=== PATIENT | female | born 1950 | race Caucasian/White ===

== ENCOUNTER → 2019-09-18 16:35 | Outpatient (CLI) | payer MEDICARE, OTHER, SELFPAY ==
[2019-09-18 19:29] LABS: Clostridium Difficile Tox PCR Negative for C. diff
== END ==
PROVIDERS: PCP Nurse Practitioner; Referring Provider Nurse Practitioner; Visit Provider Nurse Practitioner
DX: Q43.8 Other specified congenital malformations of intestine (principal); R19.4 Change in bowel habit; R19.7 Diarrhea, unspecified; Z98.84 Bariatric surgery status
CPT/HCPCS: 87177; 87493

== ENCOUNTER → 2019-09-19 08:21 | Outpatient (CLI) | payer MEDICARE, OTHER, SELFPAY ==
[2019-09-21 19:43] LABS: COVID19 Sendout Not Detected (Not Detected)
== END ==
PROVIDERS: PCP Nurse Practitioner; Visit Provider Physician Assistant
DX: Z01.818 Encounter for other preprocedural examination (principal); R05 Cough
CPT/HCPCS: 87635

== ENCOUNTER → 2019-09-19 08:37 | Outpatient (CLI) | payer MEDICARE, OTHER, SELFPAY ==
--- NOTE | 2019-09-19 08:42 | DI.RAD.S_ITS ---
PROCEDURE: XR ACUTE ABDOMEN SERIES INDICATIONS: abdominal pain, diarrhea, nausea, vomiting. TECHNIQUE: One view chest and two views of the abdomen were acquired. COMPARISON: None. FINDINGS: Surgical changes and devices: None. Chest: Lungs are clear. Heart size is normal. No pleural effusions. No pneumoperitoneum. Abdomen: There is gaseous dilatation of multiple loops of colon. Loops of colon are dilated up to 9.5 cm. Loops of colon are dilated to the lower pelvis. No suspicious calcifications. Visualized solid organ contours appear normal. Bones: No suspicious bony lesions. IMPRESSION: Findings suspicious for distal colonic obstruction. Dictated by: Lizbeth Townsend MD, PhD on 09/19/2019 at 9:40 Approved by: Lizbeth Townsend MD, PhD on 09/19/2019 at 9:41
--- NOTE | 2019-09-19 08:42 | DI.RAD.S_ITS ---
PROCEDURE: XR CHEST 2V INDICATIONS: shortness of breath, bilateral lower lobe crackes TECHNIQUE: 2 views of the chest were acquired. COMPARISON: None. FINDINGS: Surgical changes and devices: None. Lungs and pleura: Lungs are clear. No pleural effusions or pneumothorax. Mediastinum: Mediastinal contours are normal. Heart size is normal. Bones and chest wall: No suspicious bony abnormalities. Soft tissues appear unremarkable. IMPRESSION: No acute cardiopulmonary disease process. Dictated by: Lizbeth Townsend MD, PhD on 09/19/2019 at 9:40 Approved by: Lizbeth Townsend MD, PhD on 09/19/2019 at 9:40
[2019-09-19 10:17] LABS: Add Manual Diff / Slide Review NO; Basophils Absolute Auto 0 /uL (0-100); Basophils Percent Auto 0.4 % (0-2); Eosinophils Absolute Auto 0 /uL (0-450); Eosinophils Percent Auto 0.4 % (2-4); Hematocrit 28.2 % (36-46); Hemoglobin 9.3 g/dL (12.0-16.0); Lymphocytes Absolute Auto 1700 /uL (1100-4500); Mean Corpuscular HGB Conc 32.9 % (30-36); Mean Corpuscular Hemoglobin 25.6 PG (26-34); Mean Corpuscular Volume 77.9 fL (80-100); Monocytes Absolute Auto 400 /uL (0-900); Neutrophils Absolute Auto 5700 /uL (1500-7000); Neutrophils Percent Auto 72.2 % (50-75); Platelet Count 280 X10^3/uL (150-400); Red Blood Cell Count 3.61 X10^6/uL (4.0-5.2); Red Cell Distribution Width 15.6 % (11.6-14.8); White Blood Cell Count 7.9 X10^3/uL (4.5-11.0)
[2019-09-19 11:03] LABS: HEMOLYSIS < 15 (0-50); Iron 30 ug/dL (37-170)
[2019-09-19 11:09] LABS: Alanine Aminotransferase 13 IU/L (<35); Albumin 3.1 g/dL (3.5-5.0); Albumin Globulin Ratio 1.2 (1.0-2.8); Alkaline Phosphatase 90 U/L (38-126); Aspartate Aminotransferase 24 IU/L (14-36); BUN Creatinine Ratio 17.8 (6-22); Bilirubin Total 0.5 mg/dL (0.2-1.3); Blood Urea Nitrogen 13 mg/dL (7-17); Calcium 8.6 mg/dL (8.4-10.2); Carbon Dioxide 24 mmol/L (22-32); Chloride 106 mmol/L (98-107); Cholesterol 127 mg/dL (140-199); Estimated Glomerular Filt Rate > 60.0 mL/min (>60); Globulin 2.6 g/dL (1.7-4.1); Glucose 89 mg/dL (80-110); HDL Cholesterol 53 mg/dL (40-60); HEMOLYSIS < 15 (0-50); LDL Cholesterol Calculated 59 mg/dL (<100); Potassium 2.9 mmol/L (3.4-5.1); Sodium 139 mmol/L (137-145); Total Protein 5.7 g/dL (6.3-8.2); Triglycerides 76 mg/dL (35-150)
[2019-09-19 11:13] LABS: Vitamin D 25 Hydroxy (D3) 23.7 ng/mL (30.0-100.0)
[2019-09-19 11:16] LABS: Percent Iron Saturation 8 % (15-50); Total Iron Binding Capacity 396 ug/dL (265-497); Transferrin 293 mg/dL (206-381)
[2019-09-19 12:09] LABS: Folate 16.7 ng/mL (2.76-20.0); Vitamin B12 967 pg/mL (239-931)
[2019-09-22 16:08] LABS: Zinc 72 ug/dL (56-134)
== END ==
PROVIDERS: PCP Nurse Practitioner; Referring Provider Nurse Practitioner; Visit Provider Nurse Practitioner
DX: Z01.818 Encounter for other preprocedural examination (principal); R05 Cough; R06.02 Shortness of breath; R09.89 Other specified symptoms and signs involving the circulatory and respiratory systems; K59.39 Other megacolon; Z13.220 Encounter for screening for lipoid disorders; Z13.6 Encounter for screening for cardiovascular disorders; E56.9 Vitamin deficiency, unspecified; E61.8 Deficiency of other specified nutrient elements; R19.7 Diarrhea, unspecified; Q43.8 Other specified congenital malformations of intestine; Z98.84 Bariatric surgery status; E55.9 Vitamin D deficiency, unspecified
CPT/HCPCS: 71046; 74022; 80053; 80061; 82306; 82525; 82607; 82746; 83540; 83550; 84630; 85025; 87635

== ENCOUNTER → 2019-10-13 11:42 | Outpatient (CLI) | payer MEDICARE, OTHER, SELFPAY ==
--- NOTE | 2019-10-13 11:43 | DI.CT.S_ITS ---
PROCEDURE: CT ABDOMEN PELVIS W CON INDICATIONS: anemia, diarrha TECHNIQUE: After the administration of oral and intravenous contrast, 5 mm thick sections acquired from the diaphragms to the symphysis. 5 mm thick coronal and sagittal reformats were performed. For radiation dose reduction, the following was used: automated exposure control, adjustment of mA and/or kV according to patient size. COMPARISON: [facility], CR, XR ACUTE ABDOMEN SERIES, 09/19/2019, 8:34. [facility], CR, XR CHEST 2V, 09/19/2019, 8:34. FINDINGS: Image quality: Excellent. ABDOMEN: Lung bases: Lung bases are clear. Heart size is normal. Solid organs: Liver is normal in size and enhancement. Gallbladder is partially contracted . Biliary system is non-dilated. Pancreas enhances normally. Spleen is normal in size and enhancement. No adrenal nodules. Kidneys are normal in size and enhancement, without hydronephrosis. Peritoneum and bowel: Stomach is normal in caliber and wall thickness, but a portion of the mid abdomen small bowel centered on series 2, image 43 and also seen on sagittal reconstruction series 5, image 45 appears abnormally wall thickened with a possible associated slight intussusception involving the small bowel at the midline above the iliac crest level. There also is a region of mural thickening involving the colon at the lower midline, involving the sigmoid colon near its [id number] thirds seen on axial image 71 of series 2. Gas prominence within descending colon and proximal sigmoid colon is associated with this appearance which raises concern for potential neoplasm at that site. No free fluid or air. Nodes and vessels: No retroperitoneal or mesenteric adenopathy. Aorta and inferior vena cava are normal in caliber. Miscellaneous: No ventral hernias. PELVIS: Genitourinary: Bladder wall thickness is normal. Miscellaneous: No inguinal hernias or adenopathy. Bones: No suspicious bony lesions. No vertebral body compression fractures. IMPRESSION: Within the lower anterior midline of the abdomen there is a region of small bowel mural thickening with possible short-segment intussusception identified, potentially representing an area of neoplastic involvement by small bowel in this clinical circumstance. There also is gas prominence within the: Through the descending colon and into the proximal sigmoid colon with an area of colonic mural thickening potentially a manifestation of neoplasm with gas retention above the area of narrowing Small-bowel follow-through barium examination and consideration of colonoscopy may be warranted. Dictated by: Elie Chen M.D. on 10/13/2019 at 13:49 Approved by: Elie Cehn M.D. on 10/13/2019 at 14:00
== END ==
PROVIDERS: PCP Nurse Practitioner; Referring Provider Internal Medicine Hematology & Oncology; Visit Provider Internal Medicine Hematology & Oncology
DX: D64.9 Anemia, unspecified (principal); R19.7 Diarrhea, unspecified
CPT/HCPCS: 74177

== ENCOUNTER → 2019-11-04 07:33 | Outpatient (CLI) | payer MEDICARE, OTHER, SELFPAY ==
--- NOTE | 2019-11-04 07:34 | DI.RAD.S_ITS ---
PROCEDURE: FL SMALL BOWEL FOLLOW THROUGH INDICATIONS: POTENTIAL LESION IN COLON, INTUSSUSCEPTION OF INTESTINE COMPARISON: [facility], CT, CT ABDOMEN PELVIS W CON, 10/13/2019, 12:51. FINDINGS: KUB: Preprocedural card reader film demonstrates a normal bowel gas pattern. No suspicious abdominal calcifications. Visualized solid organ contours appear normal. No suspicious bony abnormalities. Small bowel: There is normal transit time of barium through the small bowel. Small bowel loops are of normal caliber throughout. Mucosal folds are smooth and of normal thickness. No strictures, intraluminal masses, or extrinsic mass effects are noted. The terminal ileum is identified, and is normal in morphology. There is large amount of stool and a dilated appearance of the:, presumably related to distal colonic obstruction, similar appearance to the CT dated 10/13/19. IMPRESSION: Normal small bowel transit time. Large amount of diffuse stool throughout the colon, which is dilated as before. Similar appearance to the recent CT dated 10/13/19. Dictated by: Cal Mullins M.D. on 11/04/2019 at 9:56 Approved by: Cal Mullins M.D. on 11/04/2019 at 10:04
== END ==
PROVIDERS: PCP Nurse Practitioner; Referring Provider Nurse Practitioner; Visit Provider Nurse Practitioner
DX: K56.1 Intussusception (principal)
CPT/HCPCS: 74250

== ENCOUNTER → 2022-11-06 11:17 | Outpatient (CLI) | payer MEDICARE, OTHER, SELFPAY ==
[2022-11-06 11:50] LABS: Add Manual Diff / Slide Review NO; Basophils Absolute Auto 0 /uL (0-100); Basophils Percent Auto 0.6 % (0-2); Eosinophils Absolute Auto 100 /uL (0-450); Eosinophils Percent Auto 1.8 % (2-4); Hematocrit 36.9 % (36-46); Hemoglobin 12.3 g/dL (12.0-16.0); Lymphocytes Absolute Auto 800 /uL (1100-4500); Lymphocytes Percent Auto 15.2 % (25-40); Mean Corpuscular HGB Conc 33.4 % (30-36); Mean Corpuscular Hemoglobin 29.9 PG (26-34); Mean Corpuscular Volume 89.3 fL (80-100); Monocytes Absolute Auto 400 /uL (0-900); Monocytes Percent Auto 7.9 % (3-14); Neutrophils Absolute Auto 3700 /uL (1500-7000); Neutrophils Percent Auto 74.5 % (50-75); Platelet Count 274 X10^3/uL (150-400); Red Blood Cell Count 4.14 X10^6/uL (4.0-5.2); Red Cell Distribution Width 13.6 % (11.6-14.8)
[2022-11-06 12:11] LABS: HEMOLYSIS < 15 (0-50); Iron 56 ug/dL (37-170)
[2022-11-06 12:18] LABS: Alanine Aminotransferase 25 IU/L (<35); Albumin 4.1 g/dL (3.5-5.0); Albumin Globulin Ratio 1.2 (1.0-2.8); Alkaline Phosphatase 102 U/L (38-126); Aspartate Aminotransferase 35 IU/L (14-36); BUN Creatinine Ratio 25.6 (6-22); Bilirubin Total 0.3 mg/dL (0.2-1.3); Blood Urea Nitrogen 22 mg/dL (7-17); Calcium 8.9 mg/dL (8.4-10.2); Carbon Dioxide 28 mmol/L (22-32); Chloride 106 mmol/L (98-107); Estimated Glomerular Filt Rate > 60 mL/min (>60); Globulin 3.4 g/dL (1.7-4.1); Glucose 101 mg/dL (80-110); HEMOLYSIS < 15 (0-50); Potassium 4.5 mmol/L (3.4-5.1); Sodium 141 mmol/L (137-145); Total Protein 7.5 g/dL (6.3-8.2)
[2022-11-06 12:24] LABS: Percent Iron Saturation 12 % (15-50); Total Iron Binding Capacity 473 ug/dL (265-497); Transferrin 373 mg/dL (206-381)
[2022-11-06 12:31] LABS: Free T3, Triiodothyronine Free 4.08 pg/mL (2.77-5.27); Free T4, Direct Thyroxine 1.08 ng/dL (0.78-2.19)
[2022-11-06 12:44] LABS: Thyroid Stimulating Hormone 0.915 uIU/mL (0.47-4.68)
[2022-11-06 13:06] LABS: Vitamin B12 > 1000 pg/mL (239-931)
== END ==
PROVIDERS: PCP Nurse Practitioner; Referring Provider Nurse Practitioner; Visit Provider Nurse Practitioner
DX: T73.3XXA Exhaustion due to excessive exertion, initial encounter (principal); R06.09 Other forms of dyspnea; D64.9 Anemia, unspecified
CPT/HCPCS: 36415; 80053; 82607; 83540; 83550; 84439; 84443; 84481; 85025; 93005; 93010

== ENCOUNTER → 2022-11-14 11:22 | Outpatient (CLI) | payer MEDICARE, OTHER, SELFPAY ==
--- NOTE | 2022-11-14 11:24 | DI.ECHO.S_ITS ---
[place] [facility]---------+ [facility] +---------+ : : [address] : : : : [id number] : : : : Phone: [phone]+ Echocardiogram Report + + :Name: LEANDER ZAMORA Study Date: 11/14/2022 Height: 78 in : :[facility] ReadingLocation: Weight: 170 lb : : Gender: Female BSA: 2.1 m2 : :: 1950 Age: 72 yrs BP: 127/76 mmHg: :Reason For Study: DYSPNEA ON EXERTION : :Ordering Physician: PENNY, : :AMY Performed By: Aleshia Stephens : :Referring: AMY FRANCIS : + + Interpretation Summary The left ventricle is normal in size and wall thickness. The ejection fraction is estimated to be 60-65%. Diastolic parameters suggest probable normal left ventricular diastolic function and normal filling pressures. The right ventricle is normal in size and function. Pulmonary artery pressures cannot be estimated because of the lack of a measurable TR jet velocity. The left atrial size is normal. Right atrial size is normal. There is no significant valvular heart disease. The ascending aorta is mild-moderately enlarged. Procedure: A two-dimensional transthoracic echocardiogram with color flow and Doppler was performed. The study quality was technically adequate. There is no prior echocardiogram noted for this patient. The patient was in sinus bradycardia with heart rates between 43-50 bpm during the exam. Left Ventricle: The left ventricle is normal in size and wall thickness. The ejection fraction is estimated to be 60-65%. There are no focal wall motion abnormalities. Diastolic parameters suggest probable normal left ventricular diastolic function and normal filling pressures. Right Ventricle: The right ventricle is normal in size and function. Atria: The left atrial size is normal. Right atrial size is normal. There is no Doppler evidence for an interatrial shunt. Mitral Valve: The mitral valve is normal in structure and function. There is no mitral regurgitation noted. Aortic Valve: The aortic valve is trileaflet. The aortic valve opens well. There is no aortic valve stenosis. There is mild aortic regurgitation. Tricuspid Valve: The tricuspid valve is normal in structure and function. There is trace tricuspid regurgitation. Pulmonary artery pressures cannot be estimated because of the lack of a measurable TR jet velocity. Pulmonic Valve: The pulmonic valve leaflets are thin and pliable; valve motion is normal. There is no pulmonic valvular regurgitation. There is no significant valvular heart disease. Great Vessels: The aortic root is normal size. The ascending aorta is mild- moderately enlarged. The IVC is of normal diameter and collapses greater than 50% with a sniff. This suggests a low right atrial pressure of 3 mm Hg. Pericardium/ Pleura There is no pericardial effusion. There is no pleural effusion. MMode/2D Measurements & Calculations LVIDd: 4.9 cm LVOT diam: 2.0 cm LVIDs: 3.3 cm Ao root diam: 3.3 cm FS: 32.7 % asc Aorta Diam: 4.1 cm IVSd: 0.80 cm Ao Arch Diam (Prox Trans): 2.5 cm LVPWd: 0.90 cm LV macario. diameter/BSA (cm/m^2): 2.3 LV sys. diameter/BSA (cm/m^2): 1.6 LA A2 area: 17.5 cm2 RA long axis: 4.5 cm LA A4 area: 14.8 cm2 RA area: 11.8 cm2 LA length (vol): 5.3 cm RA vol: 26.3 ml LA vol: 41.6 ml RA : 12.5 ml/m2 LA vol index: 19.7 ml/m2 IVC diam: 1.4 cm RVD1 (basal): 3.8 cm RVD2 (mid): 2.6 cm Doppler Measurements & Calculations Ao V2 max: 164.0 cm/sec LVOT Max [place]: 113.0 cm/sec Ao V2 mean: 108.0 cm/sec LV V1 max P.1 mmHg Ao max P.0 mmHg LV V1 VTI: 26.7 cm Ao mean P.0 mmHg ESTEVAN(I,D): 2.5 cm2 Ao V2 VTI: 34.1 cm ESTEVAN(V,D): 2.2 cm2 sev ratio: 0.78 ESTEVAN indexed to BSA (cm^2/m^2): 1.2 AI P1/2t: 1210 msec AI dec slope: 89.1 cm/sec2 MV E max chino: 49.7 cm/sec PA V2 max: 94.8 cm/sec MV A max chino: 46.3 cm/sec PA V2 mean: 64.2 cm/sec MV E/A: 1.1 PA mean P.0 mmHg Med Peak E' [place]: 8.3 cm/sec PA pr(Accel): 45.7 mmHg E/E' med: 6.0 Lat Peak E' [place]: 10.9 cm/sec E/E' lat: 4.6 E/e' average: 5.3 MV dec time: 0.50 sec SV(LVOT): 83.9 ml AV P1/2t-pr_phl: 1208 msec AV VR_phl: 0.69 ESTEVAN(VTI)/BSA_phl: 1.2 MV P1/2t-pr_phl: 145.0 msec Reading Physician:03:52 PM
--- NOTE | 2022-11-14 11:24 | DI.CT.S_ITS ---
PROCEDURE: CT ANGIO CHEST INDICATIONS: SOB with exertion, hx smoking TECHNIQUE: After the administration of intravenous contrast, 2 mm thick sections acquired from the pulmonary apices to the posterior costophrenic angles. 3-dimensional maximum intensity projection (MIP) coronal and sagittal reformats were then acquired through the thorax. For radiation dose reduction, the following was used: automated exposure control, adjustment of mA and/or kV according to patient size. COMPARISON: None. FINDINGS: Image quality: Excellent. Pulmonary arteries: Pulmonary arteries are normal in size, and demonstrate no intraluminal filling defects to suggest central pulmonary embolism. Lungs and pleura: Lungs are clear. No pleural effusions or pneumothorax. Central and peripheral airways are patent. Mediastinum: Heart size is mildly enlarged, without pericardial effusion. No mediastinal or hilar adenopathy. Aneurysmal dilatation of the ascending aorta, measuring 4.4 cm in diameter. Transverse arch and descending thoracic aorta are normal caliber. Esophagus is normal in caliber, with [id number] hiatal hernia. Bones and chest wall: No suspicious bony lesions. Ribs and thoracic spine appear intact throughout. Thyroid gland contains subcentimeter nodules bilaterally.. No axillary or supraclavicular adenopathy. Abdomen: Visualized upper abdominal solid organs appear normal in the early arterial phase of enhancement. Remote partial gastrectomy. IMPRESSION: 1. Aneurysmal dilatation of the ascending aorta, measuring 4.4 cm. 2. Mild cardiomegaly. 3. No pulmonary emboli. 4. No acute pulmonary process. Dictated by: Doug Amezcua M.D. on 11/14/2022 at 15:32 Approved by: Doug Amezcua M.D. on 11/14/2022 at 15:35
== END ==
PROVIDERS: PCP Nurse Practitioner; Referring Provider Nurse Practitioner; Visit Provider Nurse Practitioner
DX: R06.02 Shortness of breath (principal); R06.09 Other forms of dyspnea; I77.89 Other specified disorders of arteries and arterioles; I35.1 Nonrheumatic aortic (valve) insufficiency
CPT/HCPCS: 71275; 93306; Q9967

== ENCOUNTER → 2022-11-21 14:45 | Outpatient (CLI) | payer MEDICARE, OTHER, SELFPAY ==
--- NOTE | 2022-11-21 14:46 | DI.NM.S_ITS ---
PROCEDURE: NM EXERCISE TREADMILL NON NUC COMPARISON: None. INDICATIONS: YUN FINDINGS: the patient exercised for 6 minutes and 48 seconds reaching 101% of maximum predicated heart rate (7.0METS, MEENU -24%). Chest pain occurred with exercised and resolved within 4 minutes of rest. Very mild horizontal ST depressions in the anterolateral leads. Frequent PVCs during exercise. IMPRESSION: Abnormal non-nuclear stress test with very mild horizontal ST depressions and chest pain with exercise. Frequent PVCs during exercise. Good exercise tolerance (7.0METs, MEENU -24%). Recommend treadmill nuclear stress test for further evaluation. Dictated by: Severino Silver MD on 11/21/2022 at 17:10 Approved by: Severino Silver MD on 11/21/2022 at 17:14
== END ==
PROVIDERS: PCP Nurse Practitioner; Referring Provider Nurse Practitioner; Visit Provider Nurse Practitioner
DX: R94.39 Abnormal result of other cardiovascular function study (principal); R06.09 Other forms of dyspnea
CPT/HCPCS: 93017

== ENCOUNTER → 2023-01-01 08:44 | Outpatient (CLI) | payer MEDICARE, OTHER, SELFPAY ==
--- NOTE | 2023-01-01 17:41 | DI.NM.S_ITS ---
DATE OF SERVICE: 01/01/2023 PROCEDURE: Pharmacological perfusion study INDICATIONS: Abnormal exercise stress test. RADIOPHARMACEUTICAL: 25.6 millicurie technetium-99m Myoview IV was injected at stress and 11.9 millicurie technetium-99m Myoview IV was injected at rest. CARDIAC STRESS: Patient underwent IV Lexiscan perfusion scan under the supervision of an attending staff. The patient received IV Lexiscan as per protocol. Remained hemodynamically stable. Resting blood pressure 96/60 and peak blood pressure 140/68. Baseline rhythm was sinus. During stress, some nonspecific ST-T changes seen. No significant arrhythmias. The patient denies any chest pain. RAW DATA: There is a significant breast shadow seen. There is increased subdiaphragmatic activity as well. Gut shadow seen near the inferior border of the heart. GATED STUDY: Stress LV ejection fraction 70% without any obvious wall motion abnormalities. Resting end-diastolic volume 111 mL. TID ratio 0.93, which is within normal limits. Lung/heart ratio 0.49, which is abnormal. MYOCARDIAL PERFUSION SCAN: Stress supine, resting supine and stress prone images were compared to each other. There are multiple perfusion defects. 1. Stress supine and resting supine images revealed moderate to large size, moderate to severely decreased perfusion of anterior wall extending into the anteroapex as well as distal anterior septum, which got partially improved during stress prone images. However, stress prone images remained to have small size, mildly decreased perfusion of distal anterior wall and anteroapex. No reversible ischemia. 2. Large size, moderate to severely decreased perfusion of inferior wall seen during stress supine and resting supine images, which got completely resolved during stress prone images suggestive of diaphragmatic tissue attenuation artifact. CONCLUSION: This is an abnormal myocardial perfusion study with predominantly fixed small size distal and anterior apical anterior wall defect. Previous myocardial infarction cannot be ruled out. There is an element of breast tissue attenuation, as well as diaphragmatic tissue attenuation artifact. Left ventricular function is preserved. No significant wall motion abnormalities seen. On raw images, breast shadow, as well as increased subdiaphragmatic shadow and gut shadow near the inferior border of the heart seen. There is a possibility of hiatal hernia, as well. Correlate clinically. Lung/heart ratio mildly abnormal. Consider 2D echo to make sure there is no diastolic dysfunction or valvular pathology. Keli Lopez - PERSONAL CHEF/fn/cheryl doc#: [id number]/job#: [id number] dd: 01/01/2023 16:26:00 dt: 01/01/2023 17:12:00 DICTATING MD/COPIES TO: Fadia Barraza MD COPIES MNE: GIAN;
== END ==
PROVIDERS: PCP Nurse Practitioner; Referring Provider Family Medicine; Visit Provider Family Medicine
DX: R94.39 Abnormal result of other cardiovascular function study (principal)
CPT/HCPCS: 78452; 93017; A9502; J2785

== ENCOUNTER → 2023-02-14 09:58 | Outpatient (CLI) | payer MEDICARE, OTHER, SELFPAY ==
[2023-02-14 11:28] LABS: Add Manual Diff / Slide Review NO; Basophils Absolute Auto 0 /uL (0-100); Basophils Percent Auto 0.9 % (0-2); Eosinophils Absolute Auto 100 /uL (0-450); Eosinophils Percent Auto 1.9 % (2-4); Hematocrit 37.8 % (36-46); Hemoglobin 12.7 g/dL (12.0-16.0); Lymphocytes Absolute Auto 700 /uL (1100-4500); Lymphocytes Percent Auto 17.9 % (25-40); Mean Corpuscular HGB Conc 33.7 % (30-36); Mean Corpuscular Hemoglobin 30.5 PG (26-34); Mean Corpuscular Volume 90.5 fL (80-100); Monocytes Absolute Auto 300 /uL (0-900); Monocytes Percent Auto 8.5 % (3-14); Neutrophils Absolute Auto 2800 /uL (1500-7000); Neutrophils Percent Auto 70.8 % (50-75); Platelet Count 279 X10^3/uL (150-400); Red Blood Cell Count 4.18 X10^6/uL (4.0-5.2)
[2023-02-14 11:40] LABS: HEMOLYSIS < 15 (0-50); Iron 160 ug/dL (37-170)
[2023-02-14 11:42] LABS: Cholesterol 185 mg/dL (140-199); HDL Cholesterol 83 mg/dL (40-60); LDL Cholesterol Calculated 79 mg/dL (<100); Triglycerides 115 mg/dL (35-150)
[2023-02-14 11:44] LABS: Alanine Aminotransferase 34 IU/L (<35); Albumin 4.4 g/dL (3.5-5.0); Albumin Globulin Ratio 1.4 (1.0-2.8); Alkaline Phosphatase 122 U/L (38-126); Aspartate Aminotransferase 47 IU/L (14-36); BUN Creatinine Ratio 25.6 (6-22); Bilirubin Total 0.9 mg/dL (0.2-1.3); Blood Urea Nitrogen 21 mg/dL (7-17); Calcium 9.8 mg/dL (8.4-10.2); Carbon Dioxide 25 mmol/L (22-32); Chloride 105 mmol/L (98-107); Estimated Glomerular Filt Rate > 60 mL/min (>60); Globulin 3.2 g/dL (1.7-4.1); Glucose 90 mg/dL (80-110); HEMOLYSIS < 15 (0-50); Potassium 4.4 mmol/L (3.4-5.1); Sodium 139 mmol/L (137-145); Total Protein 7.6 g/dL (6.3-8.2)
[2023-02-14 11:53] LABS: Percent Iron Saturation 34 % (15-50); Total Iron Binding Capacity 468 ug/dL (265-497); Transferrin 397 mg/dL (206-381)
== END ==
PROVIDERS: Family Medicine; PCP Nurse Practitioner; Referring Provider Nurse Practitioner; Visit Provider Nurse Practitioner
DX: Z00.00 Encounter for general adult medical examination without abnormal findings (principal); R93.1 Abnormal findings on diagnostic imaging of heart and coronary circulation; I21.9 Acute myocardial infarction, unspecified; E78.5 Hyperlipidemia, unspecified; E61.1 Iron deficiency
CPT/HCPCS: 36415; 80053; 80061; 83540; 83550; 85025

== ENCOUNTER → 2023-11-02 08:34 | Outpatient (CLI) | payer MEDICARE, OTHER, SELFPAY ==
[2023-11-02 09:23] LABS: Alanine Aminotransferase 26 IU/L (<35); Albumin Globulin Ratio 1.5 (1.0-2.8); Alkaline Phosphatase 101 U/L (38-126); Aspartate Aminotransferase 32 IU/L (14-36); BUN Creatinine Ratio 22.5 (6-22); Bilirubin Total 0.7 mg/dL (0.2-1.3); Blood Urea Nitrogen 18 mg/dL (7-17); Calcium 8.9 mg/dL (8.4-10.2); Carbon Dioxide 22 mmol/L (22-32); Chloride 111 mmol/L (98-107); Cholesterol 124 mg/dL (140-199); Estimated Glomerular Filt Rate > 60 mL/min (>60); Globulin 2.6 g/dL (1.7-4.1); Glucose 100 mg/dL (80-110); HDL Cholesterol 73 mg/dL (40-60); HEMOLYSIS < 15 (0-50); LDL Cholesterol Calculated 32 mg/dL (<100); Potassium 4.2 mmol/L (3.4-5.1); Sodium 139 mmol/L (137-145); Total Protein 6.6 g/dL (6.3-8.2); Triglycerides 93 mg/dL (35-150)
== END ==
PROVIDERS: PCP Nurse Practitioner; Referring Provider Internal Medicine Cardiovascular Disease; Visit Provider Internal Medicine Cardiovascular Disease
DX: I25.118 Atherosclerotic heart disease of native coronary artery with other forms of angina pectoris (principal)
CPT/HCPCS: 36415; 80053; 80061

== ENCOUNTER → 2024-02-13 13:16 | Outpatient (CLI) | payer MEDICARE, OTHER, SELFPAY ==
--- NOTE | 2024-02-13 13:18 | DI.CT.S_ITS ---
PROCEDURE: CT LUNG LOW DOSE SCREENING INDICATIONS: 20 pack year smoking history TECHNIQUE: Noncontrast 2.0-2.5 mm thick sections acquired from the pulmonary apices to the posterior costophrenic angles. 7 mm thick axial MIP, and 5 mm coronal and sagittal reformats were then acquired. For radiation dose reduction, the following was used: automated exposure control, adjustment of mA and/or kV according to patient size. COMPARISON: [facility], CT, CT ANGIO CHEST, 11/14/2022, 12:28. FINDINGS: Image quality: Diagnostic. Lower Neck: No enlarged lymph nodes. Thyroid: No thyroid nodules which require sonographic follow up, per consensus guidelines. Axillae: No enlarged lymph nodes. Chest Wall: Unremarkable. Bones: Unremarkable. Lungs and Pleura: No pneumothorax or pleural effusions. No consolidations. Punctate left lower lobe nodule series 3, image 199 as well as additional lower lobe punctate nodules on series 3, image 221 are unchanged. Small cluster punctate nodules in the lateral aspect of the right upper lobe on series 3, image 142 is new. Heart: Heart size is normal. No pericardial effusion. Thoracic Vessels: Ascending thoracic aorta measures 4.3 cm unchanged. Mediastinum and Amaya: No enlarged lymph nodes. Esophagus: No wall thickening. Moderate hiatal hernia. Postsurgical gastric changes. Upper Abdomen: Visualized upper abdomen solid organs and bowel loops appear normal. IMPRESSION: Previous pulmonary nodules are unchanged. New punctate cluster of nodules in the right upper lobe suspicious for tree-in-bud appearance of infection/inflammation. LUNG-RADS 3; six-month interval follow-up after appropriate therapy for resolution right upper lobe nodules. Clinically Significant Non-pulmonary Findings: None. Dictated by: Janell Lozano M.D. on 02/13/2024 at 17:30 Approved by: Janell Lozano M.D. on 02/13/2024 at 17:49
== END ==
PROVIDERS: PCP Family Medicine; Referring Provider Family Medicine; Visit Provider Family Medicine
DX: Z87.891 Personal history of nicotine dependence (principal); Z12.2 Encounter for screening for malignant neoplasm of respiratory organs; R91.8 Other nonspecific abnormal finding of lung field; K44.9 Diaphragmatic hernia without obstruction or gangrene
CPT/HCPCS: 71271

== ENCOUNTER → 2024-10-13 08:35 | Outpatient (CLI) | payer MEDICARE, OTHER, SELFPAY ==
[2024-10-13 09:16] LABS: Add Manual Diff / Slide Review NO; Hematocrit 29.4 % (36-46); Hemoglobin 9.5 g/dL (12.0-16.0); Lymphocytes Absolute Auto 800 /uL (1100-4500); Mean Corpuscular HGB Conc 32.4 % (30-36); Mean Corpuscular Hemoglobin 24.4 PG (26-34); Mean Corpuscular Volume 75.3 fL (80-100); Platelet Count 235 X10^3/uL (150-400)
[2024-10-13 09:29] LABS: Hemoglobin A1C% w Est Avg Glu 5.1 % (4.0-6.0)
[2024-10-13 09:38] LABS: Alanine Aminotransferase 45 IU/L (<35); Albumin 3.9 g/dL (3.5-5.0); Albumin Globulin Ratio 1.4 (1.0-2.8); Alkaline Phosphatase 105 U/L (38-126); Blood Urea Nitrogen 18 mg/dL (7-17); Calcium 9.1 mg/dL (8.4-10.2); Carbon Dioxide 25 mmol/L (22-32); Chloride 106 mmol/L (98-107); Cholesterol 125 mg/dL (140-199); Estimated Glomerular Filt Rate > 60 mL/min (>60); Globulin 2.7 g/dL (1.7-4.1); Glucose 93 mg/dL (70-99); HDL Cholesterol 66 mg/dL (40-60); HEMOLYSIS < 15 (0-50); Magnesium 1.7 mg/dL (1.6-2.3); Potassium 5.2 mmol/L (3.4-5.1); Sodium 136 mmol/L (137-145); Total Protein 6.6 g/dL (6.3-8.2); Triglycerides 105 mg/dL (35-150)
[2024-10-13 09:52] LABS: Free T4, Direct Thyroxine 1.19 ng/dL (0.78-2.19)
[2024-10-13 10:05] LABS: Thyroid Stimulating Hormone 2.08 uIU/mL (0.47-4.68)
== END ==
PROVIDERS: PCP Family Medicine; Referring Provider Internal Medicine Cardiovascular Disease; Visit Provider Internal Medicine Cardiovascular Disease
DX: Z13.1 Encounter for screening for diabetes mellitus (principal); R53.83 Other fatigue; E78.5 Hyperlipidemia, unspecified; R00.1 Bradycardia, unspecified; R06.02 Shortness of breath
CPT/HCPCS: 36415; 80053; 80061; 83036; 83735; 84439; 84443; 85025

== ENCOUNTER → 2024-10-29 14:41 | Outpatient (CLI) | payer MEDICARE, OTHER, SELFPAY ==
[2024-10-29 16:51] LABS: Appearance Urine UA CLEAR; Bilirubin Urine UA NEGATIVE (NEGATIVE); Color Urine UA YELLOW; Glucose Urine UA NEGATIVE (Negative); Ketones Urine UA NEGATIVE (NEGATIVE); Leukocyte Esterase Urine UA NEGATIVE (NEGATIVE); Nitrite Urine UA POSITIVE (Negative); Occult Blood Urine UA NEGATIVE (Negative); Protein Urine UA NEGATIVE (Negative); Specific Gravity Urine UA 1.025 (1.000-1.035); Urobilinogen Urine UA 0.2 E.U./dL (0.2); pH Urine UA 5.5 (4.5-8.0)
[2024-10-29 17:01] LABS: Culture Indicated Urine Specimen Cultured
== END ==
PROVIDERS: PCP Family Medicine; Visit Provider Obstetrics & Gynecology Gynecology
DX: N95.2 Postmenopausal atrophic vaginitis (principal); N39.3 Stress incontinence (female) (male); N39.41 Urge incontinence
CPT/HCPCS: 81001; 87077; 87086

== ENCOUNTER 2024-12-15 13:48 | Day surgery (SDC) | payer MEDICARE, OTHER, SELFPAY ==
--- NOTE | 2024-12-04 16:11 | PM.GYNHP.1 ---
History of Present Illness History of Present Illness Narrative: Keli Lopez is a 74 year old female Date of procedure:?? 12-15-2024 Preoperative diagnosis:? Stress incontinence Also has overactive bladder and urge incontinence Planned Procedure:?? Mid urethral sling, cystoscopy Postop Meds Tylenol 1000 mg, ?3 times a day? Motrin 400 mg (over age 65 yr) 3 times a day Oycodone 5 mg,? take 1 pill every 4-6 hr as needed, # 5? Colace,? 1 pill BID, for constipation Both the echocardiogram and the nuclear medicine cardiac stress test were normal. Records are in the chart CC severe urinary incontinence HPI: 74-year-old female who presents for evaluation of above complaint.?? She reports onset of symptoms over 10 years ago.?? She considers this a? Moderate? problem. She has severe mixed urinary incontinence. She thinks about 80% of it is urge incontinence about 20% as stress incontinence. See triggers below. She uses 4 regular sized pads in the day and 1 pad at night. She reports that she leaks all day long. She voids every 1-2 hours in the day. She has nocturia times 3-4, this disrupts her sleep. She describes toilet mapping, she knows where all of the public toilet are.. She has severe urgency. No prior medical or surgical treatment for urinary incontinence. She has not done Kegel's we will start all of these treatments now. No prolapse symptoms. No fecal incontinence. No tobacco use, no hematuria, no UTIs. She will see cardiology for some shortness of breath and undergo a cardiac echo, and then she will undergo a cardiac stress test These studies are in October, and then she has follow-up for these results in mid December. prior hyst -yes, 35 years ago -x1 c-sec -0 Pelvic Floor Review of Systems: (HPI) Stress Urinary Incontinence symptoms (RUBI): A few times per day Triggers include: Sneeze, cough, laugh, exercise, walk ? Urge Incontinence symptoms (Urge UI): Several times a day Triggers include: Full bladder with urge ? Pads: She wears 4 regular pads size 6. In the day, 1 at night Overactive Bladder symptoms (OAB):? ? Frequency:?? Every 1-2 hours Nocturia:?? Times 3-4 Urgency:?? Moderate Prior incontinence treatment includes:? Medical:? No Surgical:? No? Kegels:?? No Physical therapy:?No? Pessary:?No? Diet / Fluids: Fluid restriction:? No Excessive fluids:?No Pain symptoms:? Painful bladder:???No Dysuria:??? No Dyspareunia:? No Dysmenorrhea:? No Urinary Risk Factors UTI?s, recurrent:? No Hematuria:? No Kidney Stones:?No? Tobacco use:? No Pelvic Organ Prolapse (POP) symptoms:?? Bulge:?No Pressure and /or? Heaviness:?No Splint for defecation or voiding:???No Voiding dysfunction: Abnormal stream:? No Strain to void:? No Incomplete emptying:?No Voiding difficulty:? No Retention:??? No Bowel Function: Constipation:?No Strain to defecate:?No Fiber:?No Laxatives:?No Fecal Incontinence:? Liquid stool:? No Solid stool:?No?? Sexual function Sexually active:? No Incontinence with sex:? No ? General Review of Systems: Constitutional, CV, Endo, Musc-skel, Eyes, Cancer, Skin, Breast, GI, Heme/Lymph, Psych, Urinary, Neuro, Chief Data Officer, Resp, Sexual:??? Pertinent positives listed above in HPI All others reviewed and negative. All reviewed on patient questionnaire.? . . PFSH Medical History Vaginal atrophy Stress incontinence, female Urge incontinence Abnormal CT scan, chest Stopped smoking with greater than 20 pack year history Anxiety Feeling of chest tightness Hiatal hernia Elevated coronary artery calcium score Abnormal computed tomography angiography of heart Iron deficiency Gastric reflux Intussusception intestine Anemia Fatigue Abdominal discomfort Bloating Respiratory crackles 1/4 way up posterior chest wall on both sides Shortness of breath Change in bowel habit Diarrhea DDD (degenerative disc disease) (~2016) Chicken pox Overactive bladder Proteinuria (~2013) Tortuous colon Surgical History Status post small bowel resection History of gastric bypass Anesthesia Cataracts, bilateral (~2014) Hx of bariatric surgery (~12/2016) Family History Mother Alzheimer's diseaseBrother Prostate cancer Tobacco & Substance Use Smoking Status: Former smoker (smoker 30 years 1/2 per day off and on and quit 2011 approximately ) substance use type: does not use Exam Height 5 ft 4 in Weight 170 lb BMI 29.2 BP 100/88 Blood Pressure Location Rt brachial Position Sitting Pulse 49 L Pulse Source Monitor Pulse Oximetry (%) 92 Oxygen Delivery Method room air General: healthy, alert, coherent, no acute distress, cooperative, nontoxic Pulmonary: normal breathing, no distress Abdomen: soft, no mass, non-distended, no hernia, non-tender Vulva: Normal labia majora, labia minora, introitus, and clitoris, non-tender Urethra meatus: normal, no discharge Perineum: Normal, non-tender Urethra: No mass, non-tender Bladder: no mass, non-tender Vagina: No lesions, no discharge, [id number] atrophy, non-tender Prolapse none Levators: Non-tender, Hysterectomy Bimanual: no mass, no adnexal mass, non-tender Anus: No lesion, non-tender, no hemorrhoid Empty Cough Stress test: Positive PVR: 10 cc mL by catheter Urethral angle hypermobile: Yes Assessment & Plan (1) Urge incontinence: Status: Acute (2) Stress incontinence, female: Status: Acute (3) Overactive bladder: Status: Chronic (4) Vaginal atrophy: Assessment and Plan ? Patient counseled regarding above conditions.? Educational materials given to patient. 1. Overactive bladder and urge incontinence.?? This diagnosis and its etiology was discussed with the patient.? Treatment options were discussed including: Behavior changes ( Limit fluid intake, Avoiding fluid intake 3 hours before bedtime, Avoiding bladder irritants / follow bladder diet, Bladder training exercises), Kegel / pelvic floor muscle exercises,? OAB Medications, and procedures to include:? bladder botox A injections, Interstim, and PTNS.?? OAB handout given.? Bladder Diet handout given (Decrease caffeine, decrease acidic foods, decrease tobacco) Kegel handout given trial of oxybutynin XL 10 mg daily 2. Stress Urinary Incontinence with urethral hypermobility:? This diagnosis was discussed with the patient. The etiology was explained. Treatment options were discussed including expectant management, pelvic floor exercises, pessary trial, and surgical intervention (mid-urethral sling, Malcolm urethropexy, P-V sling, Emma urethral plication, urethral bulking injection).? Risks and benefits of surgery were briefly outlined. Unexpected finding of a positive cough stress test with an empty bladder, therefore she is diagnosed with stress incontinence We discussed that she is a candidate for a Midurethral Sling as treatment of her stress incontinence. Success rate of being dry from stress incontinence is about 80-85%; another 10-15% of patients are markedly improved but not cured;? 1-2% will fail, and 1-2% will need the sling cut because it is too tight.? The risk of temporary urinary retention requeiring temporary catheterization is about 15-20%; risk of urinary retention requiring sling release procedure is about 1-2%, as noted above.? We discussed the small 1-3% of mesh erosion as well as the small risk of de darya urgency.? This procedure is not designed to treat Urge Incontinence symptoms; however, 30-50% of patients with overactive bladder/ urgency urinary incontinence will have improvement in these symptoms, in 30% these symptoms will stay the same, and in 20-30% these symptoms will worsen. see below for counseling 3. Vaginal atrophy, recommend vaginal estrogen cream, 3 nights a week, can use indefinitely Follow-up:??? She will see cardiology for some shortness of breath and undergo a cardiac echo, and then she will undergo a cardiac stress test These studies are in October, and then she has follow-up for these results in mid December. We will try to get her scheduled for surgery in late December as she is leaving the area at the end of December \ Both the echocardiogram and the nuclear medicine cardiac stress test were normal. Records are in the chart CC = here for preop Surgical Counselling Note Patient seen for surgical counselling.? She desires surgical repair. Please see? H & P for exam and discussion. Date of procedure:?? 12-15-2024 Preoperative diagnosis:? Stress incontinence Also has overactive bladder and urge incontinence Planned Procedure:?? Mid urethral sling, cystoscopy Postop Meds Tylenol 1000 mg, ?3 times a day? Motrin 400 mg (over age 65 yr) 3 times a day Oycodone 5 mg,? take 1 pill every 4-6 hr as needed, # 5? Colace,? 1 pill BID, for constipation Both the echocardiogram and the nuclear medicine cardiac stress test were normal. Records are in the chart Patient counseled extensively about the Risks, Benefits, and Alternatives to surgery.? She was offered the opportunity to ask any questions, and all questions were answered. ? Surgical Risks include: Bleeding, Hemorrhage, Transfusion, Infection (especially wound or bladder), Injury to adjacent organs (especially bladder, ureter, bowel, blood vessels, nerves), Postop or Chronic Pain, need for Reoperation, and Life-threatening event (especially M.I., CVA, PE, DVT). Procedure Risks include: Failure to Cure condition, Recurrence of condition months or years later, Urinary incontinence, Voiding dysfunction or Urinary Retention with prolonged catheter use, Poor wound healing, Erosions of any mesh or graft used, Dyspareunia, Vaginal scarring or narrowing, Need for additional surgery (immediate or delayed).? The expected cure and improvement and failure rates were discussed. Patient counseled to avoid the following for 6 weeks after surgery: (1) Impact sports (like running or jumping), walking and stairs OK (2) Lifting over 20# (3) Sexual intercourse No limits after 6 weeks. ? Good exercise tolerance, > 4 Mets. Her current medications were reviewed, and instructions given over which to use and which to discontinue before surgery.? Post-operative care instructions reviewed.? We discussed post-operative pain: Pain should be in the mild-moderate range, but can be moderate-severe for the first few days.?? Prescriptions will typically be given for (1) acetaminophen (Tylenol) and (2) non-steroidal anti-inflammatory drug (NSAID, like Motrin or Naprosyn), use both together, around the clock. Prescription will also be given for a (3) narcotic pain medication. Use the narcotic as needed, as a booster to the Tylenol and NSAID. You might need 0-4 narcotic pills a day typically. The narcotic will only be needed for a few days.?? Gradually use less of the narcotic, but continue the Tylenol and NSAID.? After a few days, the narcotic should no longer be needed, and only the Tylenol and NSAID will be needed.? Warm packs or cold packs can also be used for pain.??Do not drive for as long as you are using the narcotic pain medication? - this should only be a few days.?? Constipation is associated with use of narcotic pain medications, and can be improved with use of a stool softener, or fiber, or a mild laxative.? If you are sent home from the hospital with a Bansal Catheter in place:? please call the office on the day after surgery We will usually remove the catheter 2-4 days after surgery: a. You will perform an at home Bansal catheter removal -or- b. You will come in to the office for a voiding trial, (For some unusual surgeries, we might leave the catheter in for up to 2 weeks, and then remove it.) Instructions for at home Bansal catheter removal..... For at-home Bansal catheter removal, this can be done on postop day 2 or 3 or 4, depending on various factors. 1. At 6 or 7 a.m., have the patient cut the Bansal catheter with scissors, while standing in a shower or bath tub. a. Cut the catheter right in the middle of the tubing, about 6 inches from the body. b. The sterile water that is inside the Bansal balloon will leak all over the floor of the shower or bath tub. This is expected. c. The catheter will either fall out of the urethra, or just gently pull on it and it will come out. 2. Now, the bladder will gradually fill up over the next few hours. 3. Go ahead and empty the bladder when you feel an urge to void. Please note how strong the urine stream is. a. If the urine stream is normal or close to normal, then everything is good to go. b. If the urine stream is slow or you can not void, then return to the clinic in the afternoon. We will place another Bansal catheter. We will repeat the voiding trial in 3-4 days. All of her questions were answered Antoine Bird MD UroGynecology & Pelvic Reconstructive Surgery [facility] Medical History (Updated 10/29/24 @ 14:25 by Antoine Bird MD) Vaginal atrophy Stress incontinence, female Urge incontinence Abnormal CT scan, chest Stopped smoking with greater than 20 pack year history Anxiety Feeling of chest tightness Hiatal hernia Elevated coronary artery calcium score Abnormal computed tomography angiography of heart Iron deficiency Gastric reflux Intussusception intestine Anemia Fatigue Abdominal discomfort Bloating Respiratory crackles 1/4 way up posterior chest wall on both sides Shortness of breath Change in bowel habit Diarrhea DDD (degenerative disc disease) (~2016) Chicken pox Overactive bladder Proteinuria (~2013) Tortuous colon Surgical History Status post small bowel resection History of gastric bypass Anesthesia Cataracts, bilateral (~2014) Hx of bariatric surgery (~12/2016) Family History Mother Alzheimer's disease Brother Prostate cancer Social History substance use type: does not use Meds Home Medications and Allergies Home Medications ?Medication ?Instructions ?Recorded ?Confirmed ?Type esomeprazole magnesium 40 mg 40 mg PO DAILY #90 caps 01/04/23 10/29/24 Rx capsule,delayed release aspirin 81 mg tablet,delayed 81 mg PO DAILY 05/16/23 10/29/24 History release (Adult Low Dose Aspirin) metoprolol succinate 25 mg 25 mg PO DAILY 05/16/23 10/29/24 History tablet,extended release 24 hr atorvastatin 20 mg tablet 20 mg PO DAILY 02/06/24 10/29/24 History estradiol 0.01% (0.1 mg/gram) 1 g vaginal 3XW #42.5 grams 10/29/24 10/29/24 Rx vaginal cream (Estrace) oxybutynin chloride 10 mg 10 mg PO DAILY #30 tabs 10/29/24 10/29/24 Rx tablet,extended release 24 hr Allergies Allergy/AdvReac Type Severity Reaction Status Date / Time lactulose AdvReac Severe Distended Verified 10/29/24 13:38 and very painful + full of gas. Assessment & Plan Time-Based Coding :: [TOTAL MINUTES] spent with patient and on the chart (including review of chart, obtaining history, exam, reviewing outside data, placing orders, documenting exam and treatment plan, and counseling patient) on [DATE].
[2024-12-15] MEDS: LACTATED RINGERS 1,000 ML 42 ML IV (13:59)
[2024-12-15] MEDS: ACETAMINOPHEN 325 MG TABLET 975 MG PO (13:59)
[2024-12-15 14:27] VITALS: BP 129/74; PULSE 55; RESP 16; TEMP 36.4; O2SAT 97; BMI 29.2
--- NOTE | 2024-12-15 15:28 | PM.PREOP ---
Pre-operative Note Interval Note History & Physical reviewed/Exam performed by Physician: Yes Changes to H&P: No
--- NOTE | 2024-12-15 15:58 | SUR.OPER ---
Lithotomy on padded OR bed, head on pillow, arms secured on padded arm boards at <90 degrees abduction. Legs secured in padded yellow fins stirrups. Safety strap across abdomen. Final position approved by Dr. Bird.
[2024-12-15] MEDS: LIDOCAINE 1% W/EPI 10ML 40 ML INJ (16:14)
[2024-12-15 16:35] VITALS: BP 99/53; PULSE 46; RESP 18; TEMP 36.4; O2SAT 95
[2024-12-15 16:41] VITALS: BP 99/54; PULSE 43; RESP 12; O2SAT 93
--- NOTE | 2024-12-15 16:41 | PM.GYNOP.1 ---
Operative Date/Time/Diagnoses Date of procedure: 12/15/24 Time of procedure: 16:00 Pre-op diagnosis: Stress incontinence Post-op diagnosis: same Procedure & Clinicians Procedure: Procedures Operation Date: 12/15/24 15:15 Actual Procedure Side Surgeon p Mid urethral sling Antoine Bird MD Operative Notes Findings: Operative Note Surgeon:? Antoine Bird MD Herbarium Curator:?? Jyoti Banuelos MD Pre-Op Diagnosis: Stress incontinence, also has overactive bladder with urge incontinence Post-Op Diagnosis:?? Same? Procedure:?? TVT mid-urethral sling, cystoscopy Findings (brief): ? 1.? TVT sling placed at mid-urethra, tension-free ? 2.? Cystoscopy with normal bladder, ureters, urethra, no trocar injury 3. Bladder filled to approximately 300 cc at the end of the case to facilitate a voiding trial. Bansal removed. She had an obvious bladder spasm leak of at least 100 cc. So she still has significant overactive bladder and urge incontinence Date of Surgery:? December 15, 2024 Complications:? None Specimens:? None Anesthesia Technique:?? General endotracheal Estimated Blood Loss (mls):? 50 Blood Replacement (mls):? [none] Drains:? None Condition:? [Stable] Procedure in detail: After consent was confirmed, the patient was taken to the operating room and placed under general anesthesia without incident.? Sequential compression devices were in place and active.? She received perioperative antibiotics.? She was then prepped and draped in the usual sterile fashion after placement in the dorsal lithotomy position using the Mu stirrups.? A Bansal catheter was placed.? With the Bansal catheter in place, the anterior vaginal mucosa beneath and lateral to the urethra was injected with 10-20 cc of? 0.5% lidocaine / epinephrine 1:200,000.? A 2-3 cm midline incision was made at the level of the midurethra with a scapel. Metzenbaum scissors were used to dissect the vagina from the urethra and then create tunnels beneath the vaginal mucosa up toward the pubic bone on each side.? A marking pen was used to beau the skin just above the pubic bone and 2 cm from the midline bilaterally, and two small 8-10 mm incisions were made on the suprapubic skin.? The trocar was passed from the right vaginal tunnel, behind the pubic bone, to the right suprapubic incision, and this was repeated on the left side.? The Bansal catheter was removed, and cystoscopy was performed with a 70 degree lens. There was no trocar injury, and the bladder, ureters, and urethra were normal.? The Bansal catheter was reinserted.? The sling was pulled into position in a tension-free manner, and a Emma clamp was easily passed between the sling and the urethra.? The plastic sheaths were removed to anchor the sling, and tension was checked again. The ends of the sling were trimmed just below the skin, and the skin incisions were cleaned and closed with dermabond. The vaginal incision was closed with 2-0 vicryl in a running fashion. Bladder filled to approximately 300 cc at the end of the case to facilitate a voiding trial. The Bansal catheter was removed. She had an obvious bladder spasm leak of at least 100 cc. So she still has significant overactive bladder and urge incontinence Sponge, needle and instrument count was correct.? The patient tolerated the procedure well and was taken to the recovery room in stable condition. Antoine Bird MD UroGynecology & Pelvic Reconstructive Surgery [place], [place] Applied: implant(s) (TVT sling )
[2024-12-15 16:51] VITALS: BP 100/56; PULSE 57; RESP 14; O2SAT 95
[2024-12-15 17:02] VITALS: BP 146/69; PULSE 50; O2SAT 98
== END 2024-12-15 17:29 | disposition home or self-care (01) ==
PROVIDERS: PCP Family Medicine; Referring Provider Obstetrics & Gynecology Gynecology; Visit Provider Obstetrics & Gynecology Gynecology
PROC: 0TSD0ZZ Reposition Urethra, Open Approach (ICD-10-PCS; CPT 57288; principal; 2024-12-15 15:15)
DX: N39.46 Mixed incontinence (principal); N32.81 Overactive bladder
CPT/HCPCS: 57288; C1771; J0690; J1100; J2405; J2704; J3010

== ENCOUNTER → 2025-01-14 08:12 | Outpatient (CLI) | payer MEDICARE, OTHER, SELFPAY ==
[2025-01-14 09:05] LABS: Add Manual Diff / Slide Review NO; Hematocrit 32.1 % (36-46); Hemoglobin 10.2 g/dL (12.0-16.0); Lymphocytes Absolute Auto 600 /uL (1100-4500); Mean Corpuscular HGB Conc 31.8 % (30-36); Mean Corpuscular Hemoglobin 23.9 PG (26-34); Mean Corpuscular Volume 75.0 fL (80-100); Platelet Count 238 X10^3/uL (150-400)
[2025-01-14 09:16] LABS: Alanine Aminotransferase 38 IU/L (<35); Albumin 4.1 g/dL (3.5-5.0); Albumin Globulin Ratio 1.5 (1.0-2.8); Alkaline Phosphatase 81 U/L (38-126); Blood Urea Nitrogen 17 mg/dL (7-17); Calcium 9.3 mg/dL (8.4-10.2); Carbon Dioxide 25 mmol/L (22-32); Chloride 105 mmol/L (98-107); Estimated Glomerular Filt Rate > 60 mL/min (>60); Globulin 2.8 g/dL (1.7-4.1); Glucose 91 mg/dL (70-99); HEMOLYSIS < 15 (0-50); Potassium 4.4 mmol/L (3.4-5.1); Sodium 137 mmol/L (137-145); Total Protein 6.9 g/dL (6.3-8.2)
== END ==
PROVIDERS: PCP Family Medicine; Referring Provider Family Medicine; Visit Provider Family Medicine
DX: D64.9 Anemia, unspecified (principal); E87.5 Hyperkalemia
CPT/HCPCS: 36415; 80053; 85025